=== PATIENT | male | born 1995 | race Caucasian/White ===

== ENCOUNTER 2018-02-01 10:30 | Outpatient (RCR) | payer OTHER, SELFPAY | END 2018-02-09 16:00 | disposition home or self-care (01) | LOC: PT 10:30 | PROVIDERS: Visit Provider Physician Assistant | DX: S39.012D Strain of muscle, fascia and tendon of lower back, subsequent encounter (principal); S16.1XXD Strain of muscle, fascia and tendon at neck level, subsequent encounter | CPT/HCPCS: 97014; 97035; 97110; 97112; 97140; 97164; G0283 ==

== ENCOUNTER 2020-03-12 14:59 | Emergency (ER) | payer BC, SELFPAY ==
[2020-03-12 15:13] VITALS: BP 153/111; PULSE 76; RESP 18; TEMP 36.9; O2SAT 99; BMI 45.0
--- NOTE | 2020-03-12 15:18 | HMH.EDUTC ---
[facility] [place] Impression: Sunburn Disposition: Home, Self-Care Condition on Discharge: Good Instructions: How to Avoid Sunburn, Sunburn (Alternative Therapy), Sunburn, DI for Sunburn Additional Instructions: Make sure that you use sunscreen Wear a brimmed hat will help prevent sunburn on your face and cover exposed skin Apply Silvadene twice daily to well cleansed upper arms for the next 7 days, avoid contact with healthy skin Cool compresses or soaks, calamine lotion, or aloe vera-based gels provide some relief of pain and discomfort. [place] emollients (eg, liquid paraffin/white soft paraffin 50/50) can be used on intact skin as tolerated. Ruptured blisters should be gently cleaned with mild soap and water and covered with wet dressings (eg, saline or petrolatum impregnated gauzes). 1. Place a cool compress on sunburned skin for immediate sunburn relief. 2. Take a cool shower or bath to cool your sunburned skin. Check out these natural bath therapies to soothe sunburn pain and other symptoms. o Add one cup of apple cider vinegar to a bath to help balance the pH (acid or alkalinity) of sunburned skin, and promote healing. o Soak in an oatmeal bath. This is especially helpful for itchy sunburned skin. o Add some lavender or chamomile essential oil to the bath to help relieve some of the stinging and pain. o Add 2 cups of baking soda to the bath to help ease irritation and redness from sunburn. o Avoid soap or perfumes in the bath water as these can be drying on already dry and sunburned skin. 3. Use lotions that contain aloe Vera to soothe and moisturize sunburnt skin. Some aloe products contain lidocaine, an anesthetic that can help relieve sunburn pain. Aloe Vera is also a good moisturizer for peeling skin. 4. Hydrate: Drink lots of water, juice, or sports drinks. Your skin is dry and dehydrated. Replacing lost body fluids will help your skin heal from sunburn more quickly. 5. Apply a cool compress containing Burow's solution (such as Domeboro Powder Packets -1 pkt in 1 pint of water) to comfort and soothe a sunburn. 6. Topical pjrb-ohx-lplsqof (OTC) 1% hydrocortisone cream may help relieve sunburn symptoms like pain, itch, and swelling. 7. Take OTC pain relievers such as ibuprofen (Advil, Motrin) or naproxen (Aleve) to help relieve sunburn pain and inflammation. 8. Apply cool, not cold, milk with a clean cloth to your sunburned skin. The milk will create a protein film that helps ease sunburn discomfort. 9. Like milk, yogurt applied to sunburned skin also can be soothing. 10. Vitamin E is an antioxidant, and can help decrease inflammation caused by sunburn. Use Vitamin E oil on the skin, or take a regular dose of the supplement. Vitamin E oil also can be rubbed onto peeling skin. 11. Apply freshly brewed tea after it has cooled to sunburnt skin using a clean cloth. The tannic acid in black tea reportedly helps draw heat from sunburned skin, and also aids in restoring the pH balance. Add mint to the tea for a more cooling effect. 12. Apply teabags soaked in cold water to sunburned eyelids to soothe the burn and reduce inflammation. 13. Cucumbers have natural antioxidant and analgesic properties. Chill cucumbers, then mash in a continuous mining machine lode miner to create a paste, and apply to affected sunburned areas including the face. [place] also can be soothing for peeling skin following a sunburn. These are some homeopathic treatments for future sunburns that some have tried and Prescriptions: Ibuprofen [Ibuprofen 800mg Tablet] 800 mg PO Q8HP PRN #20 tab PRN Reason: Moderate Pain Transmission Status: Received by [facility] Referrals: Provider,Referral, [Primary Care Provider] - As needed Time of Disposition: 15:32 Medical Decision Making - Emmett Inquiry Pt receiving controlled substance: No Emmett was queried for this patient: No Vital Signs: 03/12/20 15:13 03/12/20 15:39 Temperature 98.5 F 98.5 F Temperature Source
[2020-03-12 15:39] VITALS: BP 153/111; PULSE 76; RESP 18; TEMP 36.9; O2SAT 99
== END 2020-03-12 15:55 | disposition home or self-care (01) ==
PROVIDERS: Emergency Provider Nurse Practitioner; PCP Physician Assistant
DX: L55.0 Sunburn of first degree (principal)
CPT/HCPCS: 99201

== ENCOUNTER → 2022-09-09 16:30 | Outpatient (CLI) | payer BC, SELFPAY ==
[2022-09-09 18:40] LABS: Basophils # 0.1 K/mm3 (0-0.2); Basophils % 1.2 % (0.1-2.0); Eosinophils # 0.2 K/mm3 (0.0-0.4); Eosinophils % 2.1 % (0.1-12.0); Hematocrit 46.6 % (42.0-52.0); Hemoglobin 15.6 g/dL (14.1-18.0); Lymphocytes # 2.4 K/mm3 (0.7-4.5); Lymphocytes % 30.5 % (10-50); Mean Corpuscular HGB Conc 33.5 g/dL (31.8-35.4); Mean Corpuscular Hemoglobin 29.3 pg (27.0-31.2); Mean Corpuscular Volume 87.6 fl (80-94); Mean Platelet Volume 8.1 fl (7.4-10.4); Monocytes # 0.4 K/mm3 (0.1-1.0); Monocytes % 4.6 % (1.7-9.3); Neutrophils # 4.9 K/mm3 (1.8-7.8); Neutrophils % 61.6 % (37.0-80.0); Platelet Count 259 K/mm3 (142-424); Red Blood Count 5.33 M/mm3 (4.60-6.20); Red Cell Distribution Width 13.4 % (11.5-17.5); White Blood Count 7.9 K/mm3 (4.8-10.8)
[2022-09-09 18:54] LABS: Blood Urea Nitrogen 23 mg/dl (9-20); Carbon Dioxide 31 mmol/L (22.0-30.0); Chloride 95 mmol/L (98-107); Estimated Glomerular Filt Rate 91 ml/min (>60); GFR (African American) 110 ML/MIN (>60); Glucose 108 mg/dl (74-100); Sodium 141 mmol/L (136-145)
[2022-09-09 19:09] LABS: Free T4 (Free Thyroxine) 0.93 ng/dl (0.78-2.19)
[2022-09-09 19:23] LABS: Thyroid Stimulating Hormone 1.96 uIU/mL (0.465-4.68)
== END ==
PROVIDERS: PCP Family Medicine; Visit Provider Family Medicine
DX: I49.9 Cardiac arrhythmia, unspecified (principal)
CPT/HCPCS: 80048; 84439; 84443; 85025

== ENCOUNTER → 2022-09-16 08:32 | Outpatient (CLI) | payer BC, SELFPAY ==
--- NOTE | 2022-09-16 08:35 | CA_ITS ---
APPROVED REPORT EXAM: Comprehensive 2D, Doppler, and color-flow Echocardiogram Owner: Anamika Cooper, RCS, RVS Ht: 5 ft 6 in Wt: 250lbs BSA: 2.20 HR: 51 bpm BP: 112/78 mmHg Rhythm: Bradycardia Indications: arrythmia, ? hx-cardiomegaly 2D Dimensions IVSd 0.74 cm LVEF (Visual) 54.50 % PWd 0.80 cm LA Volume 49.60 mL LVDd 5.65 cm LA Volume Index 22.50 mL/m2 (M/F) 16-34 LVDs 4.03 cm Aortic Root 3.05 cm Left Atrium 3.45 cm LVOT 2.07 cm (M/F) 1.5-2.5 M-Mode Dimensions RVDd 2.84 cm (0.9-2.6) LA Diam 3.74 cm (1.9-4.0) LVDd 4.92 cm (3.5-5.7) Ao Diam 3.13 cm (2.0-3.7) LVDs 3.74 cm (3.5-5.7) IVSd 0.95 cm (0.6-1.1) PWd 0.91 cm (0.6-1.1) EF (Teich) 47.70% EPSs 0.76 cm FS 24.00% EDV (Teich) 113.90 mL TAPSE 2.32 (<1.7) ESV (Teich) 59.60 mL LV Diastology E Decel Time 317.00 (160-240 msec) E/A Ratio 2.52 MED E' 9.20 (< 7 cm/sec) MED A' 6.80 cm/s E'/MED E' Ratio 8.26 (>14) LAT E' 9.60 (<10 cm/sec) LAT A' 6.40 cm/s E/LAT E' Ratio 7.92 (>14) Aortic Valve AO Peak GR. 4.60 mmHg Mitral Valve MV A Velocity 30.00 (40-130 cm/s) E/A Ratio 2.52 MV Decel. Time 317.00 (160-240 ms) Pulmonary Valve PV Peak Velocity 93.00 (50-150 cm/s) Left Ventricle Left atrium is normal size, left ventricle is normal size, there is preserved left ventricular systolic function, estimated ejection fraction 55% with no regional wall motion abnormality, diastolic parameters are within normal range. Right Ventricle Right atrium and right ventricle are normal size and contractility. Aortic Valve Aortic valve is grossly normal there is no aortic stenosis or aortic insufficiency. Mitral Valve Mitral valve grossly normal, there is trace mitral regurgitation. Tricuspid Valve Tricuspid valve is grossly normal, there is trace tricuspid regurgitation, tricuspid regurgitation jet velocity is inadequate for calculation of the right ventricular systolic pressure. Pulmonic Valve Pulmonic valve is poorly visualized. Great Vessels Aortic root is normal size. Inferior vena cava normal 7 normal inspiratory collapse. Pericardium No significant pericardial effusion noted. Conclusion 1. Normal left ventricular size. Left ventricular systolic function, estimated ejection fraction 55% with no regional wall motion abnormality, diastolic parameters are within normal range. 2. Trace mitral and tricuspid regurgitation. 3. No significant pericardial effusion noted. 4. Inferior vena cava is normal size with normal inspiratory collapse. Electronically signed by : Dmitriy Serna MD 09/17/2022 09:22:20
== END ==
LOC: RT 08:33
PROVIDERS: PCP Family Medicine; Visit Provider Family Medicine
DX: I49.9 Cardiac arrhythmia, unspecified (principal)
CPT/HCPCS: 93306

== ENCOUNTER 2024-09-02 18:22 | Observation (INO) | payer BC, SELFPAY ==
[2024-09-02] VITALS (9 sets, daily range): BP systolic 117–153; BP diastolic 66–111; PULSE 77–98; RESP 10–20; TEMP 37.6; O2SAT 95–99; BMI 41.3
--- NOTE | 2024-09-02 18:35 | ECG_ITS ---
APPROVED REPORT Exam: Resting ECG HR:93 bpm ECG Measurements Heart Rate 93 AXES NV 142 P 14 QRSd 92 QRS 13 QT 342 T 41 QTc 392 Conclusion SINUS RHYTHM NORMAL ECG UNCONFIRMED REPORT Electronically signed by : ZANA WALTERS, 09/03/2024 04:02:43
--- NOTE | 2024-09-02 18:35 | XR_ITS ---
PROCEDURE INFORMATION: Exam: XR Chest Exam date and time: 09/02/2024 6:36 PM Age: 29 years old Clinical indication: Pain; Other: Diaphoresis; Right-sided; Additional info: Ruq abd pain vs rl chest wall pain, diaphoresis TECHNIQUE: Imaging protocol: Radiologic exam of the chest. Views: 1 view. COMPARISON: No relevant prior studies available. FINDINGS: Lungs: No evidence of acute pulmonary disease or infiltrates Pleural spaces: No large effusion or pneumothorax. Heart/Mediastinum: No evidence of mediastinal widening or cardiac silhouette enlargement; the mediastinum and heart appear within normal limits for contour and size. Bones/joints: No evidence of acute osseous abnormalities within the visualized portions of the thoracic spine and ribs. Osseous structures appear appropriate for patient age. IMPRESSION: No dense parenchymal consolidation, pleural effusion, or pneumothorax.
[2024-09-02] MEDS: HYDROMORPHONE 2MG/ML SYRINGE 0.5 MG IV (18:40)
[2024-09-02] MEDS: ONDANSETRON 4MG/2ML VIAL 4 MG IV ×2 (18:40→21:55)
[2024-09-02] MEDS: KETOROLAC 30MG/ML VIAL 15 MG IV (18:40)
[2024-09-02 18:55] LABS: Basophils # 0.1 K/mm3 (0-0.2); Basophils % 0.4 % (0.1-2.0); Eosinophils # 0.2 K/mm3 (0.0-0.4); Eosinophils % 0.9 % (0.1-12.0); Hematocrit 44.9 % (42.0-52.0); Hemoglobin 16.2 g/dL (14.1-18.0); Lymphocytes # 1.6 K/mm3 (0.7-4.5); Lymphocytes % 8.2 % (10-50); Mean Corpuscular Hemoglobin 29.7 pg (27.0-31.2); Mean Corpuscular Volume 82.4 fl (80-94); Mean Platelet Volume 7.2 fl (7.4-10.4); Monocytes # 0.9 K/mm3 (0.1-1.0); Monocytes % 4.9 % (1.7-9.3); Neutrophils # 16.1 K/mm3 (1.8-7.8); Neutrophils % 85.5 % (37.0-80.0); Platelet Count 345 K/mm3 (142-424); Red Blood Count 5.45 M/mm3 (4.60-6.20); Red Cell Distribution Width 13.5 % (11.5-17.5); White Blood Count 18.8 K/mm3 (4.8-10.8)
[2024-09-02 18:58] LABS: MANUAL DIFFERENTIAL MANUAL DIFFERENTIAL (MANUAL DIFF)
[2024-09-02 19:02] LABS: INR 0.99 (0.9-1.1); Prothrombin Time 11.1 seconds (10.1-12.5)
[2024-09-02 19:03] LABS: Albumin Level 4.9 g/dl (3.5-5.0); Chloride 104 mmol/L (98-107); Sodium 140 mmol/L (136-145)
[2024-09-02 19:04] LABS: Potassium 4.1 mmoL/L (3.5-5.1)
[2024-09-02 19:06] LABS: Alanine Aminotransferase 35 U/L (12-78); Albumin/Globulin Ratio 1.3 (1.1-1.8); Alkaline Phosphatase 77 U/L (38-126); Anion Gap 17.1 mEq/L (5-15); Aspartate Amino Transferase 37 U/L (17-59); Blood Urea Nitrogen 20 mg/dl (9-20); Carbon Dioxide 23 mmol/L (22.0-30.0); Chol/HDL Ratio 4.1 (1-3.5); Cholesterol 223 mg/dl (140-200); Creatinine Clearance Estimated 67 mL/min (50-200); Estimated Glomerular Filt Rate 56 ml/min (>60); GFR (African American) 68 ML/MIN (>60); Globulin 3.7 g/dL (1.3-3.2); HDL Cholesterol 54 mg/dl (40-60); Lipase 124 U/L (23-300); Total Protein,Serum 8.6 g/dl (6.3-8.2); Triglycerides 102 mg/dl (30-150); VLDL Cholesterol 20 mg/dL (0-40)
[2024-09-02 19:07] LABS: Calcium 9.5 mg/dl (8.4-10.2); Glucose 191 mg/dl (74-100); Lactic Acid 1.5 mmol/L (0.7-2.1)
[2024-09-02 19:13] LABS: Lymphocytes % 16 % (10-50); Monocytes % 3 % (2-9); Neutrophils % 81 % (42-76); Platelet Estimate Normal; RBC Morphology Normal; Total Cells Counted 100
[2024-09-02 19:17] LABS: Direct LDL Cholesterol 136.23 mg/dL (100-129); NT Pro Brain Natriuretic Pep. < 20.0 pg/mL (0-125)
[2024-09-02 19:18] LABS: Activated Partial Thrombo Time 19.8 seconds (22.8-30.6)
[2024-09-02 19:20] LABS: Troponin I < 0.01 ng/ml (0.00-0.034)
[2024-09-02 19:22] LABS: Microscopic, Urine URINE MICROSCOPIC (MICROSCOPIC)
[2024-09-02 19:23] LABS: Blood, Urine Negative (Negative); Glucose,Urine (UA) Negative (Negative); Ketones,Urine 2+ (Negative); Leukocyte Esterase,Urine Negative (Negative); Nitrate,Urine POSITIVE (Negative); Protein,Urine 2+ (Negative); Specific Gravity, Urine >= 1.030 (1.005-1.030)
[2024-09-02] MEDS: 0.9 % SODIUM CHLORIDE 1000ML 1,000 ML 999 ML IV (19:27)
[2024-09-02 19:30] LABS: HIV (1&2) Antibody Rapid NONREACTIVE (NONREACTIVE)
--- NOTE | 2024-09-02 19:34 | CT_ITS ---
PROCEDURE INFORMATION: Exam: CT Abdomen And Pelvis With Contrast Exam date and time: 09/02/2024 7:48 PM Age: 29 years old Clinical indication: Abdominal pain; Additional info: Ruq/rlq pain/r flank pain and vomiting TECHNIQUE: Imaging protocol: Computed tomography of the abdomen and pelvis with contrast. Radiation optimization: All CT scans at this facility use at least one of these dose optimization techniques: automated exposure control; mA and/or kV adjustment per patient size (includes targeted exams where dose is matched to clinical indication); or iterative reconstruction. Contrast material: ISOVUE; Contrast volume: 75 ml; Contrast route: IV; COMPARISON: CR XR CHEST PORTABLE 09/02/2024 6:36 PM FINDINGS: Liver: Normal. Gallbladder and biliary ducts: No acute process. Pancreas: Normal. Spleen: Normal. Adrenal glands: The adrenal glands appear normal. Kidneys and ureters: There are no soft tissue renal masses or hydronephrosis. Stomach and bowel: There are scattered colonic diverticula. Appendix: No evidence of appendicitis. Intraperitoneal space: Unremarkable. Vasculature: The abdominal aorta and its major branches appear normal without evidence of aneurysm or stenosis. There are pelvic phleboliths. Lymph nodes: No lymphadenopathy. Urinary bladder: Unremarkable as visualized. Reproductive: No acute process. Bones/joints: The visualized osseous structures of the abdomen and pelvis appear normal for patient age. Soft tissues: There are fat containing bilateral inguinal hernias. Partially visualized right-sided gynecomastia. IMPRESSION: No acute inflammatory or obstructive process is identified. Incidental findings are described within the findings section.
--- NOTE | 2024-09-02 19:34 | PC.NURSE ---
Administered Sodium Chloride 1000mL as per the MAR
[2024-09-02 19:37] LABS: Bilirubin,Urine 2+ (Negative)
--- NOTE | 2024-09-02 19:37 | ED_ITS ---
Discharge Plan Prescriptions Prescriptions: New ondansetron 4 mg tablet,disintegrating 4 mg PO Q6H PRN (Reason: nausea and vomiting) Qty: 10 0RF cefdinir 300 mg capsule 300 mg PO BID 10 Days Qty: 20 0RF oxycodone 5 mg tablet 5 mg PO Q6H PRN (Reason: pain) Qty: 10 0RF No Action amoxicillin-pot clavulanate 875-125 mg tablet 1 tab PO BID 10 Days Qty: 20 0RF All Day Allergy (cetirizine) 10 mg capsule 10 mg PO DAILY PRN Referrals Follow up/Referrals: Gordo Ambrose MD [Primary Care Provider] - See instructions Activity Restrictions/Add. Instructions Additional Instructions/Restrictions: Call your family doctor to establish care for this visit to the emergency department and schedule follow-up within 48 hours to ensure improvement. If you have any worsening of your condition or any other concerning signs or symptoms, return to the emergency department or your primary care doctor for further evaluation. Clinical Impressions Clinical Impression: Acute flank pain, Abdominal pain, Pyelonephritis Instructions Patient Instructions: DI for Acute Abdominal Pain Print Language Print Language: Citizen Of [place] Discharge ED Provider: Tyrone Spring General Adult HPI General Chief complaint: Abdominal Pain Stated complaint: ABDOMINAL PAIN Time Seen by Provider: 09/02/24 18:24 Mode of Arrival: Ambulatory Source of Information: Patient Limitations: No Limitations Description of Symptoms (Recalled from ER Triage Doc. by RN): pt comes in complaining of right sided abd/chest, and flank pain since today at 1300 and got worse at 1600, pt complains of sharp stabbing pain that sowrse when he takes a breath History of Present Illness HPI narrative: Please note that above description of symptoms, in this electronic medical record under categorization of recalled from ER triage doctor by RN are reflective of an initial nursing assessment, however, is not reflective of my full history and physical exam that was personally taken and clarified. Consequentially, this preceding description of symptoms, which may include the patient's categorized chief complaint in the EMR, do not reflect my personal clinical impression, and the ultimate description of history of present illness and patient stated complaints should be deferred to this section of the note. Unless stated otherwise or congruent with this section of the note, additional signs, symptoms, or incongruence should be interpreted as inaccurate with my clinical impression. Related Data Home Medications ?Medication ?Instructions ?Recorded ?Confirmed cetirizine 10 mg capsule (All Day 10 mg PO DAILY PRN 02/17/23 10/29/23 Allergy (cetirizine)) Previous Rx's ?Medication ?Instructions ?Recorded amoxicillin 875 mg-potassium 1 tab PO BID 10 days #20 tabs 10/29/23 clavulanate 125 mg tablet cefdinir 300 mg capsule 300 mg PO BID 10 days #20 caps 09/02/24 ondansetron 4 mg disintegrating 4 mg PO Q6H PRN nausea and 09/02/24 tablet vomiting #10 tabs oxycodone 5 mg tablet 5 mg PO Q6H PRN pain #10 tabs 09/02/24 Allergies Allergy/AdvReac Type Severity Reaction Status Date / Time No Known Allergies Allergy Verified 10/29/23 14:24 [facility] Disclaimer: The information contained in this section may have been updated after the patient was seen, as this information can be updated by other users. 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) Travel in the last 8 weeks: None household members: family (grandparents) housing: house Other Medical History Have you received the Pneumonia Vaccine: No ROS Obtained: Yes All systems reviewed & no additional complaints except as documented Physical Exam General General appearance: alert, in distress and obese Head Head exam: atraumatic and normocephalic Eye Eye exam: Present normal appearance, PERRL and EOMI Neck Neck exam: Present normal inspection, full ROM and trachea midline Respiratory Respiratory exam: Present normal lung sounds bilaterally; Absent respiratory distress, wheezes, stridor, accessory muscle use or prolonged expiratory phase Cardiovascular Cardiovascular exam: Present normal rhythm, tachycardia and other (Pulses equal symmetric in upper and lower extremities) Abdominal Exam Abdominal exam: Present soft; Absent distention, tenderness or pulsatile mass Extremities Exam Extremities exam: Absent edema Neurological Exam Neurological exam: Present alert, oriented X3 and CN II-XII intact; Absent motor sensory deficit Skin Skin exam: Present warm, dry, diaphoresis and pallor; Absent erythema Medical Decision Making Medical Records Medical records reviewed: Yes I reviewed the patient's medical records. Screening: Per USPSTF and CDC recommendations, given the prevalence of disease in our region, it is our hospital?s policy to screen for HIV and viral Hepatitis for all patients aged 18 and over and those with ongoing risk factors. [place] Inquiry Pt receiving controlled substance: No [place] was queried for this patient: No Vital Signs: 09/02/24 18:22 09/02/24 18:24 09/02/24 18:30 Temperature 99.6 F Temperature Source Oral Pulse Rate 98 H 97 H Pulse Rate [Right Radial] 97 H Respiratory Rate 20 Blood Pressure 153/111 H 129/79 Blood Pressure [Right Arm] 129/79 Blood Pressure Mean 123 95 Blood Pressure Mean [Right Arm] 95 02 Sat by Pulse Oximetry 96 96 96 Oxygen Delivery Method Room Air Room Air Room Air 09/02/24 18:51 09/02/24 19:00 09/02/24 19:30 Temperature Temperature Source Pulse Rate 92 H 94 H 82 Pulse Rate [Right Radial] Respiratory Rate 10 L Blood Pressure 128/85 117/76 137/68 Blood Pressure [Right Arm] Blood Pressure Mean 93 90 Blood Pressure Mean [Right Arm] 02 Sat by Pulse Oximetry 95 95 99 Oxygen Delivery Method Room Air Room Air 09/02/24 21:30 Temperature Temperature Source Pulse Rate 77 Pulse Rate [Right Radial] Respiratory Rate 19 Blood Pressure 123/66 Blood Pressure [Right Arm] Blood Pressure Mean Blood Pressure Mean [Right Arm] 02 Sat by Pulse Oximetry 98 Oxygen Delivery Method Lab Data Lab Results 09/02/24 18:27: WBC 18.8 H, RBC 5.45, Hgb 16.2, Hct 44.9, MCV 82.4, MCH 29.7, M CHC 36.0 H, RDW 13.5, Plt Count 345, MPV 7.2 L, Neut % (Auto) 85.5 H, Lymph % (Auto) 8.2 L, Vernon % (Auto) 4.9, Eos % (Auto) 0.9, Baso % (Auto) 0.4, Neut # (Auto) 16.1 H, Lymph # (Auto) 1.6, Vernon # (Auto) 0.9, Eos # (Auto) 0.2, Baso # (Auto) 0.1, Total Counted 100, Neutrophils % (Manual) 81 H, Lymphocytes % (Manual) 16, Monocytes % (Manual) 3, Platelet Estimate Normal, RBC Morphology Normal, PT 11.1, INR 0.99, APTT 19.8 L, Sodium 140, Potassium 4.1, Chloride 104, Carbon Dioxide 23, Anion Gap 17.1 H, BUN 20, Creatinine 1.50 H, Estimated Creat Clear 67, Estimated GFR 56 L, Est GFR ( Amer) 68, Glucose 191 H, Lactate 1.5, Calcium 9.5, Total Bilirubin 1.0, AST 37, ALT 35, Alkaline Phosphatase 77, Troponin I < 0.01, NT-Pro-B Natriuret Pep < 20.0, Total Protein 8.6 H, Albumin 4.9, Globulin 3.7 H, Albumin/Globulin Ratio 1.3, Triglycerides 102, Cholesterol 223 H, LDL Cholesterol Direct 136.23 H, VLDL Cholesterol 20, HDL Cholesterol 54, Cholesterol/HDL Ratio 4.1 H, Lipase 124, HIV 1&2 Antibody Rapid Nonreactive 09/02/24 19:13: Urine Color Gretel, Urine Appearance Slightly cloudy, Urine pH 6.0, Ur Specific [place] >= 1.030, Urine Protein 2+ A, Urine Glucose (UA) Negative, Urine Ketones 2+, Urine Blood Negative, Urine Nitrate Positive A, U rine Bilirubin 2+ A, Urine Urobilinogen 1.0, Ur Leukocyte Esterase Negative, Urine WBC 5-10, Ur Squamous Epith Cells Occasional, Urine Bacteria 1+, Hyaline Casts 5-10, Urine Mucus 1+ 09/02/24 18:27 09/02/24 18:27 Orders (Tests/Meds): ED MEDICATIONS Generic Name Dose Route Start Last Admin Trade Name Freq PRN Reason Stop Dose Admin Sodium Chloride 10 ml 09/02/24 19:50 09/02/24 19:53 Sodium Chloride 0.9% 10ml Syr (Rad Only) IV 10/02/24 19:49 10 ml NEEDED PRN Administration Maintain IV Site Discontinued Medications Generic Name Dose Route Start Last Admin Trade Name Freq PRN Reason Stop Dose Admin Ceftriaxone Sodium 1 gm 09/02/24 19:52 09/02/24 20:11 Ceftriaxone 1gm Vial IV 09/02/24 19:53 1 gm ONCE ONE Administration Hydromorphone HCl 0.5 mg 09/02/24 18:35 09/02/24 18:40 Hydromorphone 2mg/Ml Syringe IV 09/02/24 18:36 0.5 mg ONCE ONE Administration Sodium Chloride 1,000 mls @ 999 mls/hr 09/02/24 19:21 09/02/24 19:27 Sod Chlor 0.9% 1000ml Bag IV 09/02/24 20:21 999 mls/hr .Q1H1M ONE Administration Iopamidol 75 ml 09/02/24 19:50 09/02/24 19:53 Iopamidol-370 (76%);100ml Bottle IV 09/02/24 19:51 75 ml ONCE ONE Administration Ketorolac Tromethamine 15 mg 09/02/24 18:35 09/02/24 18:40 Ketorolac 30mg/Ml Vial IV 09/02/24 18:36 15 mg ONCE ONE Administration Ondansetron HCl 4 mg 09/02/24 18:35 09/02/24 18:40 Ondansetron 4mg/2ml Vial IV 09/02/24 18:36 4 mg ONCE ONE Administration Sodium Chloride 50 ml 09/02/24 20:12 09/02/24 20:12 Sodium Chloride 0.9% 50ml Bag IV 09/02/24 20:13 50 ml ONCE ONE Administration ORDERS Category Date Time Status CT abdomen pelvis w con Stat Cat Scan 09/02/24 19:34 Completed POCUS Point of Care (ER Only) Stat Exams 09/02/24 18:35 Ordered XR chest portable Stat Exams 09/02/24 18:35 Completed Complete Blood Count Auto Diff Stat Lab 09/02/24 18:27 Completed Comprehensive Metabolic Panel Stat Lab 09/02/24 18:27 Completed HIV (1&2) Antibody Rapid Stat Lab 09/02/24 18:27 Completed Hep C Ab with Reflex to RNA Stat Lab 09/02/24 18:27 Received Lactic Acid Stat Lab 09/02/24 18:27 Completed Lipase Stat Lab 09/02/24 18:27 Completed Lipid Panel Stat Lab 09/02/24 18:27 Completed NT Pro Brain Natriuretic Pep. Stat Lab 09/02/24 18:27 Completed PT INR [Prothrombin Time INR] Stat Lab 09/02/24 18:27 Completed PTT [Activated Partial Thrombo Time] Stat Lab 09/02/24 18:27 Completed Troponin I Q3H Lab 09/02/24 21:45 Ordered Troponin I Q3H Lab 09/03/24 00:45 Ordered Troponin I Stat Lab 09/02/24 18:27 Completed Urinalysis and Microscopic Stat Lab 09/02/24 19:13 Completed Blood Culture Stat Micro 09/02/24 20:04 Received Urine Culture Stat Micro 09/02/24 19:13 Received Medical Decision Narrative: Otherwise healthy 29-year-old male presenting with flank/abdominal pain. States that he woke up today around early afternoon, felt nauseated, was able to go back to sleep. Shortly thereafter a couple hours later, woke up, felt nauseated, vomited nonbloody, nonbilious vomit. 2 or 3 episodes of this. Got in the shower, while he was in the shower, he started having severe right flank/back pain that radiated around into his epigastrium. It was persistent, so he came to the emergency department for further evaluation. Was unable to take any meds due to nausea and vomiting. Currently severe in intensity, associated with diaphoresis and vomiting, never had pain like this in the past. Nothing in particular seems to make it better. Last had a bowel movement just before arrival, no blood or abnormalities. Able to urinate without issue.. History was obtained via conversation with patient. On arrival, patient hemodynamically stable, alert, oriented x4, appropriate, GCS 15, moving all extremities spontaneously, pupils equal and reactive to light. Full physical exam performed and significant for pale, diaphoretic male who appears to be in moderate distress secondary to pain. Abdomen is soft, nondistended, but tender in his epigastrium/right upper quadrant. Murrell sign positive. No flank tenderness on my exam. No overlying skin changes. No signs of peritonitis. Differential includes nephrolithiasis, PUD, gastritis, enteritis, gastroenteritis, pancreatitis, SBO, colitis, diverticulitis, UTI, cholecystitis, choledocholithiasis, appendicitis, torsion, hepatitis, aortic pathology, mesenteric ischemia among others. Patient placed on continuous cardiac monitoring and continuous pulse ox with initial blood pressure 129/79, heart rate 97, saturation 96% on room air. Independent interpretation of EKG shows sinus rhythm 93 beats a minute without ST or T wave changes concerning for acute ischemia. AL 142, QRS 92, QTc 392. Normal axis. Patient was given Toradol, Dilaudid, Zofran, IV fluids for symptomatic management and correction of underlying abnormalities. On reevaluation, patient feeling much better, speaking full sentences, no longer tachycardic, diaphoretic, or ill-appearing. Workup independently interpreted and significant for leukocytosis nearly 19,000 with neutrophilia. Coags are normal. EMILIA with creatinine 1.5 up from normal baseline. Anion gap of 17.1. Troponin and BNP negative. Your analysis with concern for pyelonephritis, patient has protein, nitrates. Bedside [id number] ultrasound of the right upper quadrant was negative. On independent interpretation of imaging, diverticulosis without diverticulitis. Patient also has upper end of normal appendix with no appendicolith or air. Some small bowel inflammation consistent with enteritis. No other acute intra-abdominal abnormality necessitating admission or surgery. See radiology read for full review of final results. On reevaluation, patient still resting comfortably after about 3 hours of observation. Given patient presentation, workup, history, this most likely represents gastroenteritis versus pyelonephritis. Conversation had with patient regarding home-going versus admission and pain control and serial abdominal exams and monitoring. Patient opting for home-going. I feel this is appropriate. Patient supplied with Zofran, oxycodone for severe pain, discharged with close return precautions. Because patient at baseline without signs or symptoms of clinical decompensation, deemed appropriate for discharge. Results were relayed to patient who voiced understanding and were agreeable to outpatient management and follow up. I discussed my clinical impression with patient and answered all questions. At this time, the evidence for any other entities in the differential is insufficient to warrant any further testing or ED observation. This was explained as well. Advisory was given that persistent or worsening symptoms require further evaluation. I confirmed the understanding of this discussion. Account Services Manager disclaimer Much of this encounter note is an electronic slab worker spoken language to printed text. Electronic slab worker of the spoken language may permit errors. Although I have reviewed the note, some errors may still exist. Procedures Limited Ultrasound Indication:: Limited RUQ ultrasound Indication: Abdominal/flank pain Identified structures: -Gallbladder -Gallbladder wall -Common bile duct -Liver Findings: Sonographic Murrell sign: Absent Gallstones: Absent Sludge: Absent Pericholecystic fluid: Absent Maximal GB wall thickness (mm) (normal is </= 3mm): Normal Common bile duct width (mm) (normal is </= 6mm): Normal Gallbladder width (cm) (normal is < 4cm): Normal Gallbladder length (cm) (normal is < 10cm): Normal Impression: Normal gallbladder, no evidence of cholelithiasis. Normal right kidney Images were saved to permanent archive The study was technically adequate CPT 27857-16 This study was performed by me, and I personally interpreted all images/videos. Based on my clinical judgement, these images were adequate and did not necessitate further imaging. Critical Care Critical Care Time Critical Care Time: No
[2024-09-02 19:38] LABS: Appearance,Urine Slightly Cloudy (Clear); Color,Urine Amber (Yellow)
[2024-09-02] MEDS: SODIUM CHLORIDE 0.9% 10ML SYR (RAD ONLY) 10 ML IV (19:53)
[2024-09-02] MEDS: IOPAMIDOL-370 (76%);100ML BOTTLE 75 ML IV (19:53)
--- NOTE | 2024-09-02 20:08 | PC.NURSE ---
Collected both sets of blood cultures and sent to lab
[2024-09-02] MEDS: cefTRIAXone 1GM VIAL 1 GM IV (20:11)
[2024-09-02 20:12] LABS: Bacteria,Urine 1+ /lpf; Mucus,Urine 1+ /lpf; Squamous Epithelial Cell,Urine Occasional #/hpf (0-5)
[2024-09-02] MEDS: SODIUM CHLORIDE 0.9% 50ML BAG 50 ML IV (20:12)
--- NOTE | 2024-09-02 21:10 | PC.NURSE ---
Rounded on pt
[2024-09-02] MEDS: OXYCODONE 5MG IMMEDIATE RELEASE TABLET 5 MG PO (22:06)
--- NOTE | 2024-09-02 22:11 | PC.NURSE ---
At d/c pt began to vomit and have severe pain again. Dr. Spring at bedside and states he will work on getting him admitted . Starting new IV.
[2024-09-02] MEDS: PROMETHAZINE HCL 25MG/ML 1ML VIAL 25 MG IV (22:17)
[2024-09-02] MEDS: SODIUM CHLORIDE 0.9% 25ML BAG 25 ML IV (22:17)
--- NOTE | 2024-09-02 22:19 | PC.NURSE ---
called house regarding admission
--- NOTE | 2024-09-02 22:36 | PC.NURSE ---
Established an 18ga IV in patients L AC
--- NOTE | 2024-09-02 22:36 | PC.NURSE ---
Admissions notified for admit
--- NOTE | 2024-09-02 23:11 | P.HP_ITS ---
<Statement entered by Carlos Alberto Kong MD - 09/03/24 22:45> I personally examined patient and agree with [facility]'s plan of care. 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 He was given fluids , had workupdone, results which showed elevated white count 18,000 and increased creatinine, with increase specific gravity in the urine with positive nitrites several WBCs and positive bacteria negative for leukocytes. Patient was given fluid medication was going to be going home but on being released from the emergency room then vomited a large amount again. I came down and have spoken with the emergency room physician and agree, ,that there is no clear cause that this could be simple viral gastroenteriti on CT . ER physician felt slight thickening in the small intestine question colitis , my exam shows positive right CVA tenderness on tapping the back , question pyelonephritis. ,Labs and exam does not show that this is an appendicitis, appendix is noted as being fairly large on CT but no stranding. examination of the abdomen found no pain in the right upper quadrant to indicate a gallbladder issue . Due to the signs of dehydration, continued vomiting, potential pyelonephritis we will go ahead and admit the patient as observation, continue with fluids, antiemetic medications, and monitor his labs. To note his girlfriend is with him. She also was seen early this morning for also vomiting, patient denies any other contact with anybody else who has been ill. [facility] Disclaimer: The information contained in this section may have been updated after the patient was seen, as this information can be updated by other users. 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) Travel in the last 8 weeks: None household members: family (grandparents) housing: house Other Medical History Have you received the Pneumonia Vaccine: No Review of Systems Review of Systems Review of systems:: pertinent systems reviewed and negative unless documented below Constitutional Constitutional: Reports as per HPI Eyes Eyes: Reports as per HPI ENT Ears, Nose, Mouth, and Throat: Reports as per HPI *Cardiovascular Cardiovascular: Reports as per HPI Comments: Denies any sign of chest pain *Respiratory Respiratory: Reports as per HPI Comments: Denies any shortness of breath or problems with respiration *Gastrointestinal Gastrointestinal: Reports as per HPI, Reports nausea and Reports vomiting *Genitourinary Genitourinary: Reports as per HPI *Musculoskeletal Musculoskeletal: Reports as per HPI Integumentary/Breasts Skin/Breast: Reports as per HPI Comments: Patient is noted as being overweight with some mild gynecomastia *Neurologic Neurologic: Reports as per HPI Psychiatric Psychiatric: Reports as per HPI Endocrine Endocrine: Reports as per HPI Hematologic/Lymphatic Hematologic/Lymphatic: Reports as per HPI Allergic/Immunologic Allergic/Immunologic: Reports as per HPI Meds Home Medications and Allergies Home Medications ?Medication ?Instructions ?Recorded ?Confirmed ?Type cefdinir 300 mg capsule 300 mg PO BID 10 days #20 caps 09/02/24 Rx ondansetron 4 mg disintegrating 4 mg PO Q6H PRN nausea and 09/02/24 Rx tablet vomiting #10 tabs oxycodone 5 mg tablet 5 mg PO Q6H PRN pain #10 tabs 09/02/24 Rx New Prescriptions to Start Prescriptions: cefdinir [place] ondansTyrone Deleon oxycodone [place] Allergies Allergy/AdvReac Type Severity Reaction Status Date / Time No Known Allergies Allergy Verified 10/29/23 14:24 Exam Data for Last 24 hours Vital signs and Labs for Last 24 Hours: Temp Pulse Resp BP Pulse Ox O2 Del Method 99.6 F 88 18 125/68 98 Room Air 09/02/24 22:38 09/02/24 22:38 09/02/24 22:38 09/02/24 22:38 09/02/24 21:30 09/02/24 22:38 Laboratory Results - last 24 hr 09/02/24 18:27: WBC 18.8 H, RBC 5.45, Hgb 16.2, Hct 44.9, MCV 82.4, MCH 29.7, M CHC 36.0 H, RDW 13.5, Plt Count 345, MPV 7.2 L, Neut % (Auto) 85.5 H, Lymph % (Auto) 8.2 L, [place] % (Auto) 4.9, Eos % (Auto) 0.9, Baso % (Auto) 0.4, Neut # (Auto) 16.1 H, Lymph # (Auto) 1.6, [place] # (Auto) 0.9, Eos # (Auto) 0.2, Baso # (Auto) 0.1, Total Counted 100, Neutrophils % (Manual) 81 H, Lymphocytes % (Manual) 16, Monocytes % (Manual) 3, Platelet Estimate Normal, RBC Morphology Normal, PT 11.1, INR 0.99, APTT 19.8 L, Sodium 140, Potassium 4.1, Chloride 104, Carbon Dioxide 23, Anion Gap 17.1 H, BUN 20, Creatinine 1.50 H, Estimated Creat Clear 67, Estimated GFR 56 L, Est GFR ( Amer) 68, Glucose 191 H, Lactate 1.5, Calcium 9.5, Total Bilirubin 1.0, AST 37, ALT 35, Alkaline Phosphatase 77, Troponin I < 0.01, NT-Pro-B Natriuret Pep < 20.0, Total Protein 8.6 H, Albumin 4.9, Globulin 3.7 H, Albumin/Globulin Ratio 1.3, Triglycerides 102, Cholesterol 223 H, LDL Cholesterol Direct 136.23 H, VLDL Cholesterol 20, HDL Cholesterol 54, Cholesterol/HDL Ratio 4.1 H, Lipase 124, HIV 1&2 Antibody Rapid Nonreactive 09/02/24 19:13: Urine Color Gretel, Urine Appearance Slightly cloudy, Urine pH 6.0, Ur Specific [place] [employer] >= 1.030, Urine Protein 2+ A, Urine Glucose (UA) Negative, Urine Ketones 2+, Urine Blood Negative, Urine Nitrate Positive A, U rine Bilirubin 2+ A, Urine Urobilinogen 1.0, Ur Leukocyte Esterase Negative, Urine WBC 5-10, Ur Squamous Epith Cells Occasional, Urine Bacteria 1+, Hyaline Casts 5-10, Urine Mucus 1+ I & O for Last 24 hours: Intake & Output 08/31/24 09/01/24 09/02/24 09/03/24 05:59 05:59 05:59 05:59 Weight 256 lb Radiology Reports for the Last 24 Hours: CT scan results no acute findings chest x-ray no acute findings Constitutional Constitutional: mild distress and obese *Routine HEENT Exam Head: Present normocephalic and atraumatic Eye: Present EOMI, PERRL and normal accommodation ENT: Present mucous membranes dry, oropharynx clear, nares patent and external ear normal *Routine Neck Exam Neck: Present supple and full ROM Routine Chest/Breast/Axilla Exam Comments: Examination of the chest, showed no acute findings no signs of tenderness *Routine Respiratory Exam Respiratory: Present CTA bilaterally, able to speak in complete sentences and symmetric chest movement *Routine Cardiovascular Exam Cardiovascular: Present RRR, Normal S1 and Normal S2 *Routine Abdominal Exam Abdominal: Present soft and normoactive bowel sounds Comments: Lamination of the abdomen found no pain upon deep palpation to any quadrant *Routine Rectal Exam Rectal:: deferred *Routine Genitalia Exam Genitalia:: deferred *Routine Extremities Exam Extremities: Present full ROM and normal capillary refill Routine Back/Spine/Pelvis Exam Back/Spine: Present full ROM and CVA tenderness (Right CVA tenderness, on kidney percussion test) Back image: 2 1. Area of pain due to percussion *Routine Skin Exam Skin: Present intact, warm and normal turgor *Routine Neurological Exam Neurological: Present alert, oriented X3, CN II-XII intact, normal reflexes, moving all extremities, normal tone, vision grossly intact, hearing grossly intact and normal speech Routine Psychiatric Exam Psychiatric: Present normal affect, normal thought process, cooperative, good insight and good judgment H&P: Result Impressions 1. Sudden onset of vomiting with right CVA tenderness, , with elevated white count to rule out difference between GI viral syndrome versus pyelonephritis Imaging and Cardiology CT scan - abdomen: Status: image reviewed by me Additional comments: No acute findings, Assessment and Plan *Assessment and plan (1) Pyelonephritis: Status: Acute Category: Medical Code(s): N12 - Tubulo-interstitial nephritis, not specified as acute or chronic (2) Acute flank pain: Status: Acute Category: Medical Code(s): R10.9 - Unspecified abdominal pain (3) Vomiting: Status: Acute Qualifiers: Vomiting type: cyclical vomiting syndrome unrelated to migraine Q ualified Code(s): R11.15 - Cyclical vomiting syndrome unrelated to migraine Category: Medical Code(s): R11.10 - Vomiting, unspecified (4) Elevated white blood cell count: Status: Acute Qualifiers: Leukocytosis type: unspecified Qualified Code(s): D72.829 - Elevated white blood cell count, unspecified Category: Medical Code(s): D72.829 - Elevated white blood cell count, unspecified (5) Acute dehydration: Status: Acute Category: Medical Code(s): E86.0 - Dehydration Plan 1. Plan : Patient will be admitted to the floor to receive IV fluids and medication to prevent vomiting, labs will be rechecked in the morning.. Will also continue with Rocephin in case this is pyelonephritis. Also medication added to protect the stomach and will have several medicines for the vomiting if needed. Will continue to monitor for any other signs of new abdominal pain that could indicate another source such as colitis,
[2024-09-02] MEDS: 0.9 % SODIUM CHLORIDE 1000ML 1,000 ML 100 ML IV (23:46)
[2024-09-02] MEDS: FAMOTIDINE 20MG/2ML VIAL 20 MG IV (23:46)
[2024-09-03] VITALS: PULSE 80
[2024-09-03] MEDS: ACETAMINOPHEN 325MG TAB 650 MG PO (02:03)
[2024-09-03 04:00] VITALS: BP 138/78; PULSE 100; PULSE 88; RESP 16; TEMP 38.2; O2SAT 96; BMI 40.9
[2024-09-03 07:04] LABS: Basophils # 0.1 K/mm3 (0-0.2); Eosinophils # 0.1 K/mm3 (0.0-0.4); Lymphocytes # 0.9 K/mm3 (0.7-4.5)
[2024-09-03 07:11] LABS: Albumin Level 4.1 g/dl (3.5-5.0); Chloride 105 mmol/L (98-107); Sodium 139 mmol/L (136-145)
[2024-09-03 07:12] LABS: Potassium 3.9 mmoL/L (3.5-5.1)
[2024-09-03 07:14] LABS: Alanine Aminotransferase 29 U/L (12-78); Alkaline Phosphatase 46 U/L (38-126); Anion Gap 13.9 mEq/L (5-15); Aspartate Amino Transferase 32 U/L (17-59); Bilirubin,Total 0.9 mg/dl (0.2-1.3); Blood Urea Nitrogen 21 mg/dl (9-20); Carbon Dioxide 24 mmol/L (22.0-30.0); Creatinine Clearance Estimated 151 mL/min (50-200); Estimated Glomerular Filt Rate 73 ml/min (>60); GFR (African American) 88 ML/MIN (>60)
[2024-09-03 07:15] LABS: Albumin/Globulin Ratio 1.5 (1.1-1.8); Calcium 8.6 mg/dl (8.4-10.2); Globulin 2.7 g/dL (1.3-3.2); Glucose 119 mg/dl (74-100); Magnesium 1.7 mg/dl (1.6-2.3); Total Protein,Serum 6.8 g/dl (6.3-8.2)
[2024-09-03 07:16] LABS: Lactic Acid 1.6 mmol/L (0.7-2.1)
[2024-09-03 07:18] LABS: Basophils % 0.7 % (0.1-2.0); Eosinophils % 0.9 % (0.1-12.0); Hematocrit 38.7 % (42.0-52.0); Lymphocytes % 10.7 % (10-50); Mean Corpuscular HGB Conc 36.8 g/dL (31.8-35.4); Mean Corpuscular Hemoglobin 30.3 pg (27.0-31.2); Mean Corpuscular Volume 82.3 fl (80-94); Monocytes # 0.5 K/mm3 (0.1-1.0); Monocytes % 5.2 % (1.7-9.3); Neutrophils # 7.2 K/mm3 (1.8-7.8); Neutrophils % 82.6 % (37.0-80.0); Platelet Count 202 K/mm3 (142-424); Red Blood Count 4.71 M/mm3 (4.60-6.20); Red Cell Distribution Width 13.8 % (11.5-17.5); White Blood Count 8.8 K/mm3 (4.8-10.8)
[2024-09-03 07:20] LABS: Hemoglobin 14.3 g/dL (14.1-18.0)
[2024-09-03 08:00] VITALS: BP 104/53; PULSE 80; PULSE 86; RESP 18; TEMP 37.6; O2SAT 97
[2024-09-03] MEDS: CEFTRIAXONE 1 GM 1 GM in 0.9 % SODIUM CHLORIDE 50 ML IV (09:02)
[2024-09-03] MEDS: 0.9 % SODIUM CHLORIDE 1000ML 1,000 ML 999 ML IV (09:02)
[2024-09-03] MEDS: SODIUM CHLORIDE 0.9% 10ML VIAL 8 ML IV (09:02)
[2024-09-03] MEDS: FAMOTIDINE 20MG/2ML VIAL 20 MG IV (09:02)
--- NOTE | 2024-09-03 12:25 | P.DS_ITS ---
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 He was given fluids , had workupdone, results which showed elevated white count 18,000 and increased creatinine, with increase specific gravity in the urine with positive nitrites several WBCs and positive bacteria negative for leukocytes. Patient was given fluid medication was going to be going home but on being released from the emergency room then vomited a large amount again. I came down and have spoken with the emergency room physician and agree, ,that there is no clear cause that this could be simple viral gastroenteriti on CT . ER physician felt slight thickening in the small intestine question colitis , my exam shows positive right CVA tenderness on tapping the back , question pyelonephritis. ,Labs and exam does not show that this is an appendicitis, appendix is noted as being fairly large on CT but no stranding. examination of the abdomen found no pain in the right upper quadrant to indicate a gallbladder issue . Due to the signs of dehydration, continued vomiting, potential pyelonephritis we will go ahead and admit the patient as observation, continue with fluids, antiemetic medications, and monitor his labs. To note his girlfriend is with him. She also was seen early this morning for also vomiting, patient denies any other contact with anybody else who has been ill. Hospital Course Hospital Course Hospital Course: Sachin is a 29-year-old male with no significant past medical history who presented with nausea/vomiting, poor oral tolerance, and fever/chills. He was admitted for pyelonephritis. #Sepsis #UTI #Pyelonephritis - WBC 18.8 -> 8.8, HR 90s -> 80s today. - UA grossly abnormal. Urine culture pending at this time. - Patient clinically improved with IV ceftriaxone and IV, oral fluid resuscitation. - Tolerating PO intake without nausea/vomiting. Improvement in CVA pain. Ambulating independently without assistance. - Will discharge with ciprofloxacin for 9 more days, as well as Zofran. Will call patient if there is resistance to this antibiotics. - Will follow up with PCP within one week. Exam Data for Last 24 hours Vital signs and Labs for Last 24 Hours: Temp Pulse Resp BP Pulse Ox O2 Del Method 99.6 F 86 18 104/53 L 97 Room Air 09/03/24 08:00 09/03/24 08:00 09/03/24 08:00 09/03/24 08:00 09/03/24 08:00 09/03/24 11:00 Laboratory Results - last 24 hr 09/02/24 18:27: WBC 18.8 H, RBC 5.45, Hgb 16.2, Hct 44.9, MCV 82.4, MCH 29.7, MCHC 36.0 H, RDW 13.5, Plt Count 345, MPV 7.2 L, Neut % (Auto) 85.5 H, Lymph % (Auto) 8.2 L, [place] % (Auto) 4.9, Eos % (Auto) 0.9, Baso % (Auto) 0.4, Neut # (Auto) 16.1 H, Lymph # (Auto) 1.6, [place] # (Auto) 0.9, Eos # (Auto) 0.2, Baso # (Auto) 0.1, Total Counted 100, Neutrophils % (Manual) 81 H, Lymphocytes % (Manual) 16, Monocytes % (Manual) 3, Platelet Estimate Normal, RBC Morphology Normal, PT 11.1, INR 0.99, APTT 19.8 L, Sodium 140, Potassium 4.1, Chloride 104, Carbon Dioxide 23, Anion Gap 17.1 H, BUN 20, Creatinine 1.50 H, Estimated Creat Clear 67, Estimated GFR 56 L, Est GFR ( Amer) 68, Glucose 191 H, Lactate 1.5, Calcium 9.5, Total Bilirubin 1.0, AST 37, ALT 35, Alkaline Phosphatase 77, Troponin I < 0.01, NT-Pro-B Natriuret Pep < 20.0, Total Protein 8.6 H, Albumin 4.9, Globulin 3.7 H, Albumin/Globulin Ratio 1.3, Triglycerides 102, Cholesterol 223 H, LDL Cholesterol Direct 136.23 H, VLDL Cholesterol 20, HDL Cholesterol 54, Cholesterol/HDL Ratio 4.1 H, Lipase 124, HIV 1&2 Antibody Rapid Nonreactive 09/02/24 19:13: Urine Color Gretel, Urine Appearance Slightly cloudy, Urine pH 6.0, Ur Specific [place] >= 1.030, Urine Protein 2+ A, Urine Glucose (UA) Negative, Urine Ketones 2+, Urine Blood Negative, Urine Nitrate Positive A, Urine Bilirubin 2+ A, Urine Urobilinogen 1.0, Ur Leukocyte Esterase Negative, Urine WBC 5-10, Ur Squamous Epith Cells Occasional, Urine Bacteria 1+, Hyaline Casts 5-10, Urine Mucus 1+ 09/03/24 06:55: WBC 8.8 D, RBC 4.71, Hgb 14.3 D, Hct 38.7 L, MCV 82.3, MCH 30.3, MCHC 36.8 H, RDW 13.8, Plt Count 202 D, MPV 7.0 L, Neut % (Auto) 82.6 H, Lymph % (Auto) 10.7, [place] % (Auto) 5.2, Eos % (Auto) 0.9, Baso % (Auto) 0.7, Neut # (Auto) 7.2, Lymph # (Auto) 0.9, [place] # (Auto) 0.5, Eos # (Auto) 0.1, Baso # (Auto) 0.1, Sodium 139, Potassium 3.9, Chloride 105, Carbon Dioxide 24, Anion Gap 13.9, BUN 21 H, Creatinine 1.20, Estimated Creat Clear 151, Estimated GFR 73, Est GFR ( Amer) 88 D, Glucose 119 H D, Lactate 1.6, Calcium 8.6, Magnesium 1.7, Total Bilirubin 0.9, AST 32, ALT 29, Alkaline Phosphatase 46, Total Protein 6.8, Albumin 4.1 D, Globulin 2.7, Albumin/Globulin Ratio 1.5 I & O for Last 24 hours: Intake & Output 08/31/24 09/01/24 09/02/24 09/03/24 23:59 23:59 23:59 23:59 Intake Total 1070 / 1070 Balance 1070 / 1070 Weight 116.12 kg 115.485 kg Constitutional Constitutional: no acute distress and obese *Routine HEENT Exam Head: Present normocephalic Eye: Present EOMI and PERRL ENT: Present mucous membranes moist *Routine Neck Exam Neck: Present supple; Absent lymphadenopathy *Routine Respiratory Exam Respiratory: Present CTA bilaterally *Routine Cardiovascular Exam Cardiovascular: Present RRR *Routine Abdominal Exam Abdominal: Present soft and normoactive bowel sounds; Absent tenderness *Routine Extremities Exam Extremities: Absent cyanosis, clubbing or edema *Routine Skin Exam Skin: Present warm; Absent rash *Routine Neurological Exam Neurological: Present alert and oriented X3 Results Data Completed and Pending Labs on day of discharge: Labs from last 24 hours 09/03/24 09/02/24 09/02/24 06:55 19:13 18:27 WBC 8.8 D 18.8 H RBC 4.71 5.45 Hgb 14.3 D 16.2 Hct 38.7 L 44.9 MCV 82.3 82.4 MCH 30.3 29.7 MCHC 36.8 H 36.0 H RDW 13.8 13.5 Plt Count 202 D 345 MPV 7.0 L 7.2 L Neut % (Auto) 82.6 H 85.5 H Lymph % (Auto) 10.7 8.2 L [place] % (Auto) 5.2 4.9 Eos % (Auto) 0.9 0.9 Baso % (Auto) 0.7 0.4 Neut # (Auto) 7.2 16.1 H Lymph # (Auto) 0.9 1.6 [place] # (Auto) 0.5 0.9 Eos # (Auto) 0.1 0.2 Baso # (Auto) 0.1 0.1 Total Counted 100 Neutrophils % (Manual) 81 H Lymphocytes % (Manual) 16 Monocytes % (Manual) 3 Platelet Estimate Normal RBC Morphology Normal PT 11.1 INR 0.99 APTT 19.8 L Sodium 139 140 Potassium 3.9 4.1 Chloride 105 104 Carbon Dioxide 24 23 Anion Gap 13.9 17.1 H BUN 21 H 20 Creatinine 1.20 1.50 H Estimated Creat Clear 151 67 Estimated GFR 73 56 L Est GFR ( Amer) 88 D 68 Glucose 119 H D 191 H Lactate 1.6 1.5 Calcium 8.6 9.5 Magnesium 1.7 Total Bilirubin 0.9 1.0 AST 32 37 ALT 29 35 Alkaline Phosphatase 46 77 Troponin I < 0.01 NT-Pro-B Natriuret Pep < 20.0 Total Protein 6.8 8.6 H Albumin 4.1 D 4.9 Globulin 2.7 3.7 H Albumin/Globulin Ratio 1.5 1.3 Triglycerides 102 Cholesterol 223 H LDL Cholesterol Direct 136.23 H VLDL Cholesterol 20 HDL Cholesterol 54 Cholesterol/HDL Ratio 4.1 H Lipase 124 Urine Color Gretel Urine Appearance Slightly cloudy Urine pH 6.0 Ur Specific [place] >= 1.030 Urine Protein 2+ A Urine Glucose (UA) Negative Urine Ketones 2+ Urine Blood Negative Urine Nitrate Positive A Urine Bilirubin 2+ A Urine Urobilinogen 1.0 Ur Leukocyte Esterase Negative Urine WBC 5-10 Ur Squamous Epith Cells Occasional Urine Bacteria 1+ Hyaline Casts 5-10 Urine Mucus 1+ HIV 1&2 Antibody Rapid Nonreactive DS: Diagnosis Discharge Diagnosis (1) Pyelonephritis: Status: Acute Code(s): N12 - Tubulo-interstitial nephritis, not specified as acute or chronic (2) Acute flank pain: Status: Acute Code(s): R10.9 - Unspecified abdominal pain (3) Vomiting: Status: Acute Code(s): R11.10 - Vomiting, unspecified Qualifiers: Vomiting type: cyclical vomiting syndrome unrelated to migraine Qualified Code(s): R11.15 - Cyclical vomiting syndrome unrelated to migraine (4) Elevated white blood cell count: Status: Acute Code(s): D72.829 - Elevated white blood cell count, unspecified Qualifiers: Leukocytosis type: unspecified Qualified Code(s): D72.829 - Elevated white blood cell count, unspecified (5) Acute dehydration: Status: Acute Code(s): E86.0 - Dehydration Meds Home Medications and Allergies Home Medications ?Medication ?Instructions ?Recorded ?Confirmed ?Type ondansetron 4 mg disintegrating 4 mg PO Q6H PRN nausea and 09/02/24 Rx tablet vomiting #10 tabs oxycodone 5 mg tablet 5 mg PO Q6H PRN pain #10 tabs 09/02/24 Rx ciprofloxacin HCl 500 mg tablet 500 mg PO BID 9 days #18 tabs 09/03/24 Rx (Cipro) New Prescriptions to Start Prescriptions: ciprofloxacin HCl [Cipro] Carlos Alberto Kong ondansTyrone Deleon oxycodone [place] Allergies Allergy/AdvReac Type Severity Reaction Status Date / Time No Known Allergies Allergy Verified 10/29/23 14:24 Discharge Plan Disposition Patient Disposition: Home, Self-Care Follow up Plan Prescriptions/Medication Reconciliation: New ondansetron 4 mg tablet,disintegrating 4 mg PO Q6H PRN (Reason: nausea and vomiting) Qty: 10 0RF oxycodone 5 mg tablet 5 mg PO Q6H PRN (Reason: pain) Qty: 10 0RF ciprofloxacin HCl [Cipro] 500 mg tablet 500 mg PO BID 9 Days Qty: 18 0RF Problem Reconciliation Problems Reviewed?: Yes Patient Discharge Instructions Print Language: Upper Sorbian Providers Primary Care Provider: Gordo Ambrose Admit Provider: Carlos Alberto Kong Attending Provider: Carlos Alberto Kong
[2024-09-05 05:29] LABS: HCV Ab Non Reactive (Non Reactive)
--- NOTE | 2024-09-05 10:46 | SW/DCPLANNER ---
Called patient x2 on hospital discharge summary. On both calls patient didnt answer and left a voicemail on the first one. 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
== END 2024-09-03 12:55 | disposition home or self-care (01) ==
LOC: ER 21:39 → 2ND 22:29
PROVIDERS: Nurse Practitioner Family; Admitting Provider Student in an Organized Health Care Education/Training Program; Emergency Provider Emergency Medicine; PCP Family Medicine; Visit Provider Student in an Organized Health Care Education/Training Program
DX: N12 Tubulo-interstitial nephritis, not specified as acute or chronic (principal); E86.0 Dehydration; D72.829 Elevated white blood cell count, unspecified; R11.15 Cyclical vomiting syndrome unrelated to migraine; N39.0 Urinary tract infection, site not specified; Z68.41 Body mass index [BMI] 40.0-44.9, adult; E66.9 Obesity, unspecified
CPT/HCPCS: 71045; 74177; 80053; 80061; 81001; 83605; 83690; 83735; 83880; 84484; 85007; 85025; 85027; 85610; 85730; 86803; 87040; 87086; 87389; 93005; 99285; G0378; J0696; J1171; J1885; J2405; J2550; J7030; Q9967; S0028

== ENCOUNTER 2025-06-12 08:44 | Outpatient (CLI) | payer BC, SELFPAY ==
--- OUTSIDE RECORDS SUMMARY | 2025-06-12 08:53 | XMS_ITS | Clinical Summary ---
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 Name Role Phone Unavailable Primary Care Provider Unavailabl e Social History Tobacco Use Types Packs/Day Years Used Date Smoking Tobacco: Never Alcohol Use Standard Drinks/Week Comments No 0 (1 standard drink = 0.6 oz pur e alcohol) Sex and Gender Information Value Date Recorded Sex Assigned at Not on file Legal Sex Male 6:46 PM EDT Gender Identity Not on file Sexual Orientation Not on file Last Filed Vital Signs Vital Sign Reading Time Taken Comments Blood Pressure 131/82 01/21/2018 10:15 AM EDT Pulse - - Temperature 36.9 C (98.4 F) 01/21/2018 10:15 AM EDT Respiratory Rate - - Oxygen Saturation - - Inhaled Oxygen Concentration - - Weight 104 kg (229 lb 4.5 oz) 01/21/2018 10:15 A M EDT Height 167.6 cm (5' 6 ) 01/21/2018 10:15 AM EDT Body Mass Index 37.01 01/21/2018 10:15 AM EDT Plan of Treatment Not on file
--- OUTSIDE RECORDS SUMMARY | 2025-06-12 08:53 | XMS_ITS | Clinical Summary ---
Author Organization 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 Name Role Phone Unavailable Primary Care Provider Unavailabl e Social History Tobacco Use Types Packs/Day Years Used Date Smoking Tobacco: Never Assessed Intimate Partner Violence Answer Date R ecorded Insults You Not on file 01/29/2021 Threatens You Not on file 01/29/2021 Screams at You Not on file 01/29/2021 Physically Hurt Not on file 01/29/2021 Intimate Partner Violence Score Not on file 01/29/2021 Stress Answer Date Recorded Stress in your Life Not on file 08/23/2024 Dealing with Stress 3 08/23/2024 Sex and Gender Information Value Date Recorded Sex Assigned at Not on file Legal Sex Male 2:28 PM CDT Gender Identity Not on file Sexual Orientation Not on file Plan of Treatment Health Maintenance Due Date Last Done Comments Dental Cleaning/Exam 1997 HIV Screening 1997 Hepatitis C Screening 1997 HPV Immunization (1 - Male 3 -dose series) 2012 Annual Preventive Exam 2015 Hep B Infection Screening - Triple Screen 2015 Hepatitis B Immunization (1 of 3 - 19+ 3-dose series) 2016 Tetanus Diphtheria and Pertu ssis Immunization (1 - Tdap) 2016 Covid-19 Immunization (1 - 2 25 season) 2024 Influenza Immunization (#1) 2025 HIB Immunization Aged Out No longer e ligible based on patient's age to complete this topic Hepatitis A Immunization Aged Out No longer eligible based on patient's age to complete this topic Pneumococcal: Ped (0 to 5 Yr s) and At-Risk Member (6 to 64 Yrs) Aged Out No longer e ligible based on patient's age to complete this topic Polio Immunization Aged Out No longer eligible based on patient's age to complete this topic Varicella Immunization Aged Out No lo nger eligible based on patient's age to complete this topic
[2025-06-12 11:57] LABS: PH,Semen 8.0 (7.3-8.3); Sperm Count 28 mil/mm3 (20-160); Sperm Motility 85 % (50-90); Volume,Semen 3.0 ml (2.0-5.0)
[2025-06-12 11:58] LABS: 3Hr Motility Quality Moderate Progression (Mod-Rapid)
== END 2025-06-12 23:59 | disposition home or self-care (01) ==
PROVIDERS: PCP Nurse Practitioner Family; Visit Provider Obstetrics & Gynecology
DX: Z31.41 Encounter for fertility testing (principal)
CPT/HCPCS: 89320